=== PATIENT | female | born 1940 | race African-American/Black ===

== ENCOUNTER 2022-12-24 18:55 | Emergency (ER) | payer MEDICARE, MEDICAID ==
[~2022-12-24] VITALS: Ht 172.7 cm; Wt 61.0 kg
[2022-12-24] MEDS ORDERED: ACETAMINOPHEN 325MG TABLET PO ONE (21:30)
[2022-12-24] MEDS ORDERED: ACET-2708 MT (23:53)
[2022-12-25] VITALS: BP 160/85
== END 2022-12-25 00:50 | disposition home or self-care (01) ==
LOC: ER 19:13
DX: S00.83XA Contusion of other part of head, initial encounter (principal); W18.30XA Fall on same level, unspecified, initial encounter; Y93.89 Activity, other specified; Y92.89 Other specified places as the place of occurrence of the external cause; Y99.8 Other external cause status
CPT/HCPCS: 70486; 99284

== ENCOUNTER 2023-09-24 09:30 | Emergency (ER) | payer MEDICARE, MEDICAID ==
[~2023-09-24] VITALS: Ht 160 cm; Wt 50.0 kg
[~2023-09-24 09:30] MED LIST: ACET-2708 MT
[2023-09-24 09:34] VITALS: O2SAT 98
[2023-09-24] MEDS ORDERED: SODIUM CHLORIDE 0.9% 1,000 ML IV ONE (10:45)
[2023-09-24 12:01] LABS: BASOPHILS % 0.1 % (0.0-2.0); EOSINOPHILS % 0.1 % (0.0-5.0); HEMATOCRIT. 38.2 % (36.0-48.0); HEMOGLOBIN. 12.7 g/dL (12.0-16.0); LYMPHOCYTES % 15.1 % (20.0-50.0); MEAN CORPUSCULAR HEMOGLOBIN 30.3 pg (28.0-32.0); MEAN CORPUSCULAR HGB CONC 33.3 g/dL (31.0-37.0); MEAN CORPUSCULAR VOLUME 90.8 fL (81.0-99.0); MEAN PLATELET VOLUME 7.1 fl (7.4-10.4); MONOCYTES % 6.2 % (2.0-8.0); NEUTROPHILS % 78.5 % (40.0-76.0); PLATELET 220 x1000/uL (130-400); RED CELL DISTRIBUTION WIDTH 15.3 % (11.6-14.6); WHITE BLOOD COUNT 6.3 x1000/uL (4.5-11.0)
[2023-09-24 12:12] LABS: INR 0.9; PROTHROMBIN TIME 10.1 sec (9.6-11.0)
[2023-09-24 12:20] LABS: ALANINE AMINOTRANSFERASE < 7 IU/L (10-49); ALBUMIN 3.9 g/dL (3.2-4.8); ASPARTATE AMINOTRANSFERASE 21 IU/L (<34); BILIRUBIN TOTAL 0.8 mg/dL (0.1-1.0); CARBON DIOXIDE 31 mEq/L (21-32); CHLORIDE 103 mEq/L (98-107); CREATININE 1.1 mg/dL (0.6-1.0); GLUCOSE 85 mg/dL (70-105); POTASSIUM 3.5 mEq/L (3.5-5.1); PROTEIN TOTAL 6.2 g/dL (6.0-8.3); SODIUM 140 mEq/L (136-145); UREA NITROGEN BLOOD 17 mg/dL (9-23)
[2023-09-24 12:46] LABS: TROPONIN I HIGH SENSITIVITY < 4 ng/L (3.0-34)
[2023-09-24] MEDS ORDERED: HYDRALAZINE 20MG/ML VIAL IV ONE (15:00)
[2023-09-24 15:06] LABS: CLARITY URINE CLEAR (CLEAR); COLOR URINE YELLOW (YELLOW); PROTEIN URINE NEGATIVE (NEGATIVE)
[2023-09-24 15:07] LABS: GLUCOSE URINE NEGATIVE (NEGATIVE); KETONES URINE NEGATIVE (NEGATIVE); LEUKOCYTE ESTERASE URINE NEGATIVE (NEGATIVE); NITRITE URINE NEGATIVE (NEGATIVE); OCCULT BLOOD URINE NEGATIVE (NEGATIVE); UROBILINOGEN URINE 0.2 E.U./dL (0.2-1.0)
[2023-09-24 16:41] LABS: TROPONIN I HIGH SENSITIVITY < 4 ng/L (3.0-34)
[2023-09-24 18:00] VITALS: BP 155/85; PULSE 96; RESP 18; TEMP 98.3
== END 2023-09-24 18:31 | disposition home or self-care (01) ==
LOC: ER 09:44
DX: R55 Syncope and collapse (principal); I10 Essential (primary) hypertension
CPT/HCPCS: 99285; 96374; 96361; 71045; 80053; 81003; 85025; 85610; 84484; 36415; J0360; J7030

== ENCOUNTER 2024-04-21 12:51 | Emergency (ER) | payer MEDICARE, MEDICAID ==
[~2024-04-21] VITALS: Ht 154.9 cm; Wt 57.0 kg
[2024-04-21 12:54] VITALS: O2SAT 96
[2024-04-21] MEDS ORDERED: CEPH500C2 MT (13:28)
[2024-04-21] MEDS ORDERED: MUPI15CR11 TP (13:28)
[2024-04-21] MEDS: CEPHALEXIN 250MG CAPSULE PO ONE (13:30)
[2024-04-21 14:48] VITALS: BP 126/68; PULSE 84; RESP 12; TEMP 97.9
== END 2024-04-21 16:51 | disposition home or self-care (01) ==
LOC: ER 12:51
DX: S81.802A Unspecified open wound, left lower leg, initial encounter (principal); I10 Essential (primary) hypertension; Z98.890 Other specified postprocedural states; X58.XXXA Exposure to other specified factors, initial encounter; Y93.89 Activity, other specified; Y92.89 Other specified places as the place of occurrence of the external cause; Y99.8 Other external cause status
CPT/HCPCS: 99283